=== PATIENT | male | born 1980 | race Caucasian/White ===

== ENCOUNTER 2022-05-02 18:33 | Inpatient (IN) | payer MEDICARE, MEDICAID ==
[~2022-05-02] VITALS: Ht 170.2 cm; Wt 104.3 kg
[2022-05-02 20:00] VITALS: BP 179/70
[2022-05-02] MEDS ORDERED: NON FORMULARY PATIENT HOME MED XX SCH (20:30)
[2022-05-02] MEDS ORDERED: BENZONATATE 100MG CAPSULE PO PRN (20:30)
[2022-05-02] MEDS ORDERED: ACETAMINOPHEN 325MG TABLET PO PRN (20:30)
[2022-05-02] MEDS ORDERED: CLONIDINE 0.1MG TABLET PO PRN (20:30)
[2022-05-02] MEDS ORDERED: SENNOSIDES/DOCUSATE SOD 8.6/50MG TABLET PO PRN (20:30)
[2022-05-02] MEDS ORDERED: THROAT LOZENGES-BENZOCAINE/MENTH/CETYLPYRD CL LOZENGES MM PRN (20:30)
[2022-05-02] MEDS ORDERED: SIMETHICONE 80MG TABLET CHEW PO PRN (20:30)
[2022-05-02] MEDS ORDERED: DOCUSATE SODIUM 100MG CAPSULE PO PRN (20:30)
[2022-05-02] MEDS ORDERED: GUAIFENESIN-DM 200MG-20MG/10ML UDC PO PRN (21:15)
[2022-05-02] MEDS ORDERED: MAGNESIUM/ALUMINUM HYDROXIDE/SIMETHICONE 30ML UDC PO PRN (21:15)
[2022-05-02] MEDS ORDERED: SODIUM CHLORIDE 45ML SPRAY NS PRN ×2 (21:22→21:23)
[2022-05-02] MEDS: ATORVASTATIN CALCIUM 40MG TABLET PO SCH (21:46)
[2022-05-02] MEDS: AMLODIPINE 5MG TABLET PO SCH (21:47)
[2022-05-02 22:30] VITALS: BP 135/64
[2022-05-02] MEDS: HYDRALAZINE HCL 10MG TABLET PO SCH (22:32)
[2022-05-03] MEDS: HYDRALAZINE HCL 10MG TABLET PO SCH ×3 (05:30→22:30)
[2022-05-03 06:48] LABS: BASOPHILS % 0.2 % (0.0-2.0); EOSINOPHILS % 2.6 % (0.0-5.0); HEMATOCRIT. 42.4 % (36.0-48.0); HEMOGLOBIN. 14.6 g/dL (12.0-16.0); LYMPHOCYTES % 25.8 % (20.0-50.0); MEAN CORPUSCULAR HEMOGLOBIN 33.6 pg (28.0-32.0); MEAN CORPUSCULAR VOLUME 97.6 fL (81.0-99.0); MEAN PLATELET VOLUME 7.9 fl (7.4-10.4); MONOCYTES % 7.5 % (2.0-8.0); NEUTROPHILS % 63.9 % (40.0-76.0); PLATELET 232 x1000/uL (130-400); RED BLOOD CELL COUNT 4.35 mill/uL (4.2-5.4); RED CELL DISTRIBUTION WIDTH 12.8 % (11.6-14.6)
[2022-05-03 06:53] LABS: CHLORIDE 107 mEq/L (98-107)
[2022-05-03 08:00] VITALS: BP 140/65
[2022-05-03] MEDS ORDERED: POLYVINYL ALCOHOL OPHTH DROPS 15ML BOTHEYE PRN (09:00)
[2022-05-03] MEDS ORDERED: ASPIRIN 325MG EC TABLET PO SCH (09:00)
[2022-05-03] MEDS: LOSARTAN POTASSIUM 50 MG TABLET PO SCH (09:18)
[2022-05-03] MEDS: OMEPRAZOLE 20MG CAPSULE EXTENDED RELEASE PO SCH (09:18)
[2022-05-03] MEDS: AMLODIPINE 5MG TABLET PO SCH ×2 (09:19→22:30)
[2022-05-03 20:00] VITALS: BP 141/82
[2022-05-03 21:00] LABS: ETHANOL BLOOD < 10 mg/dL; HDL CHOLESTEROL 24 mg/dL (40-59); LDL CHOLESTEROL 51 mg/dL (5-100)
[2022-05-03] MEDS: HYDROCORTISONE 1% CREAM 30GM TOP SCH (22:00)
[2022-05-03] MEDS: ATORVASTATIN CALCIUM 40MG TABLET PO SCH (22:31)
[2022-05-04] MEDS: HYDROCORTISONE 1% CREAM 30GM TOP SCH ×3 (06:00→22:00)
[2022-05-04 06:31] LABS: BASOPHILS % 0.3 % (0.0-2.0); EOSINOPHILS % 2.7 % (0.0-5.0); HEMATOCRIT. 41.5 % (42.0-52.0); HEMOGLOBIN. 14.4 g/dL (14.0-18.0); LYMPHOCYTES % 24.7 % (20.0-50.0); MEAN CORPUSCULAR HEMOGLOBIN 33.6 pg (28.0-32.0); MEAN CORPUSCULAR VOLUME 96.8 fL (80.0-94.0); MEAN PLATELET VOLUME 7.9 fl (7.4-10.4); MONOCYTES % 7.4 % (2.0-8.0); NEUTROPHILS % 64.9 % (40.0-76.0); PLATELET 218 x1000/uL (130-400); RED BLOOD CELL COUNT 4.29 mill/uL (4.7-6.1); RED CELL DISTRIBUTION WIDTH 12.7 % (11.6-14.6)
[2022-05-04 06:53] LABS: CHLORIDE 105 mEq/L (98-107)
[2022-05-04 07:20] LABS: FOLIC ACID (FOLATE) SERUM 11.2 ng/mL (>5.38)
[2022-05-04] MEDS: HYDRALAZINE HCL 10MG TABLET PO SCH ×3 (07:56→22:00)
[2022-05-04 08:00] VITALS: BP 138/75
[2022-05-04] MEDS ORDERED: ASPIRIN 81MG EC TABLET PO SCH (09:00)
[2022-05-04 09:13] LABS: PROSTRATE SPECIFIC AG TOTAL 0.3 ng/mL (0.0-4.0)
[2022-05-04] MEDS: OMEPRAZOLE 20MG CAPSULE EXTENDED RELEASE PO SCH (09:37)
[2022-05-04] MEDS: AMLODIPINE 5MG TABLET PO SCH ×2 (09:38→20:59)
[2022-05-04] MEDS: LOSARTAN POTASSIUM 50 MG TABLET PO SCH (09:38)
[2022-05-04] MEDS: CLOPIDOGREL 75MG TABLET PO SCH (09:38)
[2022-05-04 13:13] LABS: *AMPHETAMINES SCREEN URINE NEGATIVE (NEGATIVE); *BARBITURATES SCREEN URINE NEGATIVE (NEGATIVE); *BENZODIAZEPINES SCREEN URINE NEGATIVE (NEGATIVE); *COCAINE SCREEN URINE NEGATIVE (NEGATIVE); CANNABINOID URINE SCREEN NEGATIVE (NEGATIVE); METHADONE URINE SCREEN NEGATIVE (NEGATIVE); OPIATES URINE SCREEN NEGATIVE (NEGATIVE); PHENCYCLIDINE URINE SCREEN NEGATIVE (NEGATIVE)
[2022-05-04] MEDS: CYANOCOBALAMIN 1000MCG/ML VIAL SUBCUT SCH (13:15)
[2022-05-04] MEDS: LACTULOSE 20G/30ML UDC PO SCH ×2 (13:17→22:00)
[2022-05-04] MEDS: TRIAMCINOLONE ACETONIDE 0.5% CREAM 15GM TOP SCH ×2 (13:58→17:23)
[2022-05-04] MEDS: MUPIROCIN 2% OINT 15GM TOP SCH (17:23)
[2022-05-04 20:00] VITALS: BP 125/62
[2022-05-04] MEDS: ATORVASTATIN CALCIUM 40MG TABLET PO SCH (20:58)
[2022-05-05] MEDS: LACTULOSE 20G/30ML UDC PO SCH ×3 (06:00→22:21)
[2022-05-05] MEDS: HYDROCORTISONE 1% CREAM 30GM TOP SCH ×3 (06:00→22:21)
[2022-05-05] MEDS: HYDRALAZINE HCL 10MG TABLET PO SCH ×3 (06:01→22:22)
[2022-05-05 08:00] VITALS: BP 158/83
[2022-05-05] MEDS: CYANOCOBALAMIN 1000MCG/ML VIAL SUBCUT SCH (09:25)
[2022-05-05] MEDS: OMEPRAZOLE 20MG CAPSULE EXTENDED RELEASE PO SCH (09:26)
[2022-05-05] MEDS: LOSARTAN POTASSIUM 50 MG TABLET PO SCH (09:26)
[2022-05-05] MEDS: AMLODIPINE 5MG TABLET PO SCH ×2 (09:27→21:21)
[2022-05-05] MEDS: CLOPIDOGREL 75MG TABLET PO SCH (09:27)
[2022-05-05] MEDS: MUPIROCIN 2% OINT 15GM TOP SCH ×2 (09:36→16:25)
[2022-05-05] MEDS: TRIAMCINOLONE ACETONIDE 0.5% CREAM 15GM TOP SCH ×3 (09:36→16:25)
[2022-05-05 20:26] VITALS: BP 160/69
[2022-05-05] MEDS: ATORVASTATIN CALCIUM 40MG TABLET PO SCH (21:21)
[2022-05-06] MEDS: LACTULOSE 20G/30ML UDC PO SCH ×3 (06:41→22:00)
[2022-05-06] MEDS: HYDROCORTISONE 1% CREAM 30GM TOP SCH ×3 (06:42→22:03)
[2022-05-06] MEDS: HYDRALAZINE HCL 10MG TABLET PO SCH ×3 (06:45→22:02)
[2022-05-06] MEDS ORDERED: CYANOCOBALAMIN 1000MCG/ML VIAL IM SCH (07:38)
[2022-05-06 08:00] VITALS: BP 128/73
[2022-05-06] MEDS: TRIAMCINOLONE ACETONIDE 0.5% CREAM 15GM TOP SCH ×3 (09:00→17:00)
[2022-05-06] MEDS: MUPIROCIN 2% OINT 15GM TOP SCH (09:00)
[2022-05-06] MEDS: CYANOCOBALAMIN 1000MCG/ML VIAL IM SCH (09:20)
[2022-05-06] MEDS: FAMOTIDINE 20MG TABLET PO SCH (09:20)
[2022-05-06] MEDS: CLOPIDOGREL 75MG TABLET PO SCH (09:20)
[2022-05-06] MEDS: LOSARTAN POTASSIUM 50 MG TABLET PO SCH (09:21)
[2022-05-06] MEDS: AMLODIPINE 5MG TABLET PO SCH ×2 (09:21→22:02)
[2022-05-06 19:18] LABS: PROTHROMBIN TIME 10.7 sec (9.6-11.0)
[2022-05-06 19:47] LABS: HEPATITIS B SURFACE ANTIGEN NEGATIVE
[2022-05-06 20:21] VITALS: BP 143/51
[2022-05-06] MEDS: ATORVASTATIN CALCIUM 40MG TABLET PO SCH (22:03)
[2022-05-07] MEDS: HYDRALAZINE HCL 10MG TABLET PO SCH ×3 (05:47→21:41)
[2022-05-07] MEDS: LACTULOSE 20G/30ML UDC PO SCH ×3 (05:47→21:42)
[2022-05-07] MEDS: HYDROCORTISONE 1% CREAM 30GM TOP SCH ×3 (06:15→21:43)
[2022-05-07 06:18] LABS: CHLORIDE 106 mEq/L (98-107)
[2022-05-07 06:22] LABS: BASOPHILS % 0.7 % (0.0-2.0); EOSINOPHILS % 2.2 % (0.0-5.0); HEMATOCRIT. 41.2 % (42.0-52.0); MEAN CORPUSCULAR HEMOGLOBIN 33.1 pg (28.0-32.0); MEAN CORPUSCULAR VOLUME 97.7 fL (80.0-94.0); MEAN PLATELET VOLUME 8.8 fl (7.4-10.4); MONOCYTES % 7.1 % (2.0-8.0); PLATELET 186 x1000/uL (130-400); RED BLOOD CELL COUNT 4.22 mill/uL (4.7-6.1); RED CELL DISTRIBUTION WIDTH 12.8 % (11.6-14.6)
[2022-05-07 08:00] VITALS: BP 112/60
[2022-05-07] MEDS: FAMOTIDINE 20MG TABLET PO SCH ×2 (08:48→17:43)
[2022-05-07] MEDS: CLOPIDOGREL 75MG TABLET PO SCH (08:49)
[2022-05-07] MEDS: AMLODIPINE 5MG TABLET PO SCH ×2 (08:49→21:40)
[2022-05-07] MEDS: LOSARTAN POTASSIUM 50 MG TABLET PO SCH (08:49)
[2022-05-07] MEDS: MUPIROCIN 2% OINT 15GM TOP SCH ×2 (09:00→17:00)
[2022-05-07] MEDS: TRIAMCINOLONE ACETONIDE 0.5% CREAM 15GM TOP SCH ×3 (09:00→17:00)
[2022-05-07] MEDS: CYANOCOBALAMIN 1000MCG/ML VIAL IM SCH (09:00)
[2022-05-07 20:07] VITALS: BP 150/62
[2022-05-07] MEDS: ATORVASTATIN CALCIUM 40MG TABLET PO SCH (21:39)
[2022-05-07] MEDS: MELATONIN 3MG TABLET PO PRN (21:40)
[2022-05-08] MEDS: LACTULOSE 20G/30ML UDC PO SCH ×2 (06:19→13:14)
[2022-05-08] MEDS: HYDROCORTISONE 1% CREAM 30GM TOP SCH ×3 (06:20→21:13)
[2022-05-08] MEDS: HYDRALAZINE HCL 10MG TABLET PO SCH ×3 (06:23→21:12)
[2022-05-08 08:00] VITALS: BP 144/81
[2022-05-08] MEDS: CLOPIDOGREL 75MG TABLET PO SCH (08:45)
[2022-05-08] MEDS: LOSARTAN POTASSIUM 50 MG TABLET PO SCH (08:45)
[2022-05-08] MEDS: CYANOCOBALAMIN 1000MCG/ML VIAL IM SCH (08:45)
[2022-05-08] MEDS: AMLODIPINE 5MG TABLET PO SCH ×2 (08:45→21:13)
[2022-05-08] MEDS: MUPIROCIN 2% OINT 15GM TOP SCH (08:45)
[2022-05-08] MEDS: FAMOTIDINE 20MG TABLET PO SCH ×2 (08:45→16:48)
[2022-05-08] MEDS: TRIAMCINOLONE ACETONIDE 0.5% CREAM 15GM TOP SCH ×3 (08:46→16:03)
[2022-05-08 09:06] LABS: FOLICLE STIMULATING HORMONE 4.2 mIU/mL (1.5-12.4); LUTEINIZING HORMONE 4.8 mIU/mL (1.7-8.6); PROLACTIN 9.8 ng/mL (4.0-15.2)
[2022-05-08 20:00] VITALS: BP 145/73
[2022-05-08] MEDS: ATORVASTATIN CALCIUM 40MG TABLET PO SCH (21:12)
[2022-05-09] MEDS: HYDRALAZINE HCL 10MG TABLET PO SCH ×3 (05:37→22:08)
[2022-05-09] MEDS: HYDROCORTISONE 1% CREAM 30GM TOP SCH ×3 (05:38→22:13)
[2022-05-09 06:44] LABS: BASOPHILS % 0.4 % (0.0-2.0); EOSINOPHILS % 2.8 % (0.0-5.0); HEMATOCRIT. 38.6 % (42.0-52.0); HEMOGLOBIN. 13.5 g/dL (14.0-18.0); LYMPHOCYTES % 30.6 % (20.0-50.0); MEAN CORPUSCULAR HEMOGLOBIN 33.7 pg (28.0-32.0); MEAN CORPUSCULAR VOLUME 96.6 fL (80.0-94.0); MEAN PLATELET VOLUME 8.1 fl (7.4-10.4); MONOCYTES % 7.7 % (2.0-8.0); NEUTROPHILS % 58.5 % (40.0-76.0); PLATELET 191 x1000/uL (130-400); RED CELL DISTRIBUTION WIDTH 12.3 % (11.6-14.6)
[2022-05-09 06:51] LABS: CHLORIDE 108 mEq/L (98-107)
[2022-05-09 08:00] VITALS: BP 140/70
[2022-05-09] MEDS: CLOPIDOGREL 75MG TABLET PO SCH (08:44)
[2022-05-09] MEDS: CYANOCOBALAMIN 1000MCG/ML VIAL IM SCH (08:44)
[2022-05-09] MEDS: LOSARTAN POTASSIUM 50 MG TABLET PO SCH (08:45)
[2022-05-09] MEDS: AMLODIPINE 5MG TABLET PO SCH ×2 (08:45→22:09)
[2022-05-09] MEDS: FAMOTIDINE 20MG TABLET PO SCH ×2 (08:45→18:03)
[2022-05-09] MEDS: TRIAMCINOLONE ACETONIDE 0.5% CREAM 15GM TOP SCH ×2 (09:00→17:00)
[2022-05-09] MEDS ORDERED: LACTULOSE 20G/30ML UDC PO SCH (09:00)
[2022-05-09 20:00] VITALS: BP 145/73
[2022-05-09] MEDS: ATORVASTATIN CALCIUM 40MG TABLET PO SCH (22:08)
[2022-05-09] MEDS: MELATONIN 3MG TABLET PO PRN (22:09)
[2022-05-10] MEDS: HYDRALAZINE HCL 10MG TABLET PO SCH ×3 (05:37→22:11)
[2022-05-10] MEDS: HYDROCORTISONE 1% CREAM 30GM TOP SCH ×3 (05:39→22:00)
[2022-05-10 06:00] LABS: CHLORIDE 108 mEq/L (98-107)
[2022-05-10 06:48] LABS: BASOPHILS % 0.5 % (0.0-2.0); HEMATOCRIT. 39.8 % (42.0-52.0); HEMOGLOBIN. 13.6 g/dL (14.0-18.0); MEAN CORPUSCULAR HEMOGLOBIN 33.2 pg (28.0-32.0); MEAN CORPUSCULAR VOLUME 97.1 fL (80.0-94.0); MEAN PLATELET VOLUME 8.3 fl (7.4-10.4); MONOCYTES % 9.8 % (2.0-8.0); NEUTROPHILS % 57.7 % (40.0-76.0); PLATELET 217 x1000/uL (130-400); RED CELL DISTRIBUTION WIDTH 12.7 % (11.6-14.6)
[2022-05-10 08:00] VITALS: BP 135/81
[2022-05-10] MEDS: FAMOTIDINE 20MG TABLET PO SCH ×2 (10:17→16:21)
[2022-05-10] MEDS: LOSARTAN POTASSIUM 50 MG TABLET PO SCH (10:18)
[2022-05-10] MEDS: AMLODIPINE 5MG TABLET PO SCH ×2 (10:18→22:11)
[2022-05-10] MEDS: CLOPIDOGREL 75MG TABLET PO SCH (10:18)
[2022-05-10] MEDS: CYANOCOBALAMIN 1000MCG/ML VIAL IM SCH (10:19)
[2022-05-10] MEDS: LACTULOSE 20G/30ML UDC PO SCH ×2 (10:29→16:21)
[2022-05-10] MEDS: TRIAMCINOLONE ACETONIDE 0.5% CREAM 15GM TOP SCH ×2 (10:38→16:23)
[2022-05-10] MEDS: ATORVASTATIN CALCIUM 40MG TABLET PO SCH (22:11)
[2022-05-11] MEDS: HYDRALAZINE HCL 10MG TABLET PO SCH ×3 (06:00→22:00)
[2022-05-11] MEDS: HYDROCORTISONE 1% CREAM 30GM TOP SCH ×3 (06:00→22:00)
[2022-05-11 08:00] VITALS: BP 125/57
[2022-05-11 08:05] LABS: CHLORIDE 108 mEq/L (98-107)
[2022-05-11 08:06] LABS: BASOPHILS % 0.4 % (0.0-2.0); EOSINOPHILS % 2.5 % (0.0-5.0); HEMATOCRIT. 38.6 % (42.0-52.0); HEMOGLOBIN. 13.4 g/dL (14.0-18.0); LYMPHOCYTES % 19.8 % (20.0-50.0); MEAN CORPUSCULAR HEMOGLOBIN 33.3 pg (28.0-32.0); MEAN CORPUSCULAR VOLUME 95.6 fL (80.0-94.0); MEAN PLATELET VOLUME 8.2 fl (7.4-10.4); MONOCYTES % 8.1 % (2.0-8.0); NEUTROPHILS % 69.2 % (40.0-76.0); PLATELET 215 x1000/uL (130-400); RED BLOOD CELL COUNT 4.03 mill/uL (4.7-6.1); RED CELL DISTRIBUTION WIDTH 12.7 % (11.6-14.6)
[2022-05-11] MEDS: TRIAMCINOLONE ACETONIDE 0.5% CREAM 15GM TOP SCH ×2 (09:00→17:00)
[2022-05-11] MEDS: LACTULOSE 20G/30ML UDC PO SCH ×2 (09:09→18:23)
[2022-05-11] MEDS: LOSARTAN POTASSIUM 50 MG TABLET PO SCH (09:11)
[2022-05-11] MEDS: CLOPIDOGREL 75MG TABLET PO SCH (09:11)
[2022-05-11] MEDS: FAMOTIDINE 20MG TABLET PO SCH ×2 (09:11→18:22)
[2022-05-11] MEDS: AMLODIPINE 5MG TABLET PO SCH ×2 (09:12→21:08)
[2022-05-11] MEDS: CLOTRIMAZOLE/BETAMETHASONE 1/0.05% CREAM 15GM TOP SCH (21:00)
[2022-05-11] MEDS: ATORVASTATIN CALCIUM 40MG TABLET PO SCH (21:08)
[2022-05-12] MEDS: HYDRALAZINE HCL 10MG TABLET PO SCH ×3 (06:00→21:10)
[2022-05-12] MEDS: HYDROCORTISONE 1% CREAM 30GM TOP SCH ×3 (06:00→22:00)
[2022-05-12 08:00] VITALS: BP 128/65
[2022-05-12] MEDS: AMLODIPINE 5MG TABLET PO SCH ×2 (08:52→21:07)
[2022-05-12] MEDS: FAMOTIDINE 20MG TABLET PO SCH ×2 (08:52→17:09)
[2022-05-12] MEDS: LOSARTAN POTASSIUM 50 MG TABLET PO SCH (08:52)
[2022-05-12] MEDS: LACTULOSE 20G/30ML UDC PO SCH ×2 (08:52→17:09)
[2022-05-12] MEDS: CLOPIDOGREL 75MG TABLET PO SCH (08:52)
[2022-05-12] MEDS: TRIAMCINOLONE ACETONIDE 0.5% CREAM 15GM TOP SCH ×2 (08:53→17:00)
[2022-05-12] MEDS: CLOTRIMAZOLE/BETAMETHASONE 1/0.05% CREAM 15GM TOP SCH ×2 (08:53→21:00)
[2022-05-12 19:06] LABS: 25-HYDROXY VITAMIN D3 18 ng/mL (.)
[2022-05-12] MEDS: ATORVASTATIN CALCIUM 40MG TABLET PO SCH (21:06)
[2022-05-13 04:06] LABS: TESTOSTERONE FREE 4.7 pg/mL (6.8-21.5)
[2022-05-13] MEDS: HYDROCORTISONE 1% CREAM 30GM TOP SCH ×3 (06:00→22:24)
[2022-05-13] MEDS: HYDRALAZINE HCL 10MG TABLET PO SCH ×3 (06:00→22:25)
[2022-05-13 07:05] LABS: T4 FREE 1.34 ng/dL (0.76-1.46)
[2022-05-13 08:00] VITALS: BP 105/72
[2022-05-13] MEDS: AMLODIPINE 5MG TABLET PO SCH ×2 (08:23→21:14)
[2022-05-13] MEDS: LOSARTAN POTASSIUM 50 MG TABLET PO SCH (08:23)
[2022-05-13] MEDS: LACTULOSE 20G/30ML UDC PO SCH ×2 (08:48→16:41)
[2022-05-13] MEDS: CLOPIDOGREL 75MG TABLET PO SCH (08:48)
[2022-05-13] MEDS: FAMOTIDINE 20MG TABLET PO SCH ×2 (08:48→16:41)
[2022-05-13] MEDS: CLOTRIMAZOLE/BETAMETHASONE 1/0.05% CREAM 15GM TOP SCH ×2 (08:52→21:15)
[2022-05-13 20:06] VITALS: BP 136/60
[2022-05-13] MEDS: ATORVASTATIN CALCIUM 40MG TABLET PO SCH (21:14)
[2022-05-14] MEDS: HYDRALAZINE HCL 10MG TABLET PO SCH ×3 (05:27→21:29)
[2022-05-14] MEDS: HYDROCORTISONE 1% CREAM 30GM TOP SCH ×3 (05:27→21:29)
[2022-05-14 08:00] VITALS: BP 121/49
[2022-05-14] MEDS: CLOPIDOGREL 75MG TABLET PO SCH (09:38)
[2022-05-14] MEDS: AMLODIPINE 5MG TABLET PO SCH ×2 (09:38→21:28)
[2022-05-14] MEDS: FAMOTIDINE 20MG TABLET PO SCH ×2 (09:38→16:37)
[2022-05-14] MEDS: LACTULOSE 20G/30ML UDC PO SCH ×2 (09:39→16:37)
[2022-05-14] MEDS: CLOTRIMAZOLE/BETAMETHASONE 1/0.05% CREAM 15GM TOP SCH ×2 (09:42→21:29)
[2022-05-14] MEDS: LOSARTAN POTASSIUM 50 MG TABLET PO SCH (09:42)
[2022-05-14] MEDS: ERGOCALCIFEROL 50000UNITS CAPSULE PO SCH (14:57)
[2022-05-14 20:27] VITALS: BP 140/56
[2022-05-14] MEDS: ATORVASTATIN CALCIUM 40MG TABLET PO SCH (21:28)
[2022-05-15] MEDS: HYDRALAZINE HCL 10MG TABLET PO SCH ×3 (05:12→21:57)
[2022-05-15] MEDS: HYDROCORTISONE 1% CREAM 30GM TOP SCH ×3 (05:12→22:00)
[2022-05-15 05:22] LABS: BASOPHILS % 0.3 % (0.0-2.0); EOSINOPHILS % 2.5 % (0.0-5.0); HEMATOCRIT. 37.4 % (42.0-52.0); LYMPHOCYTES % 21.2 % (20.0-50.0); MEAN CORPUSCULAR HEMOGLOBIN 33.4 pg (28.0-32.0); MEAN CORPUSCULAR VOLUME 96.5 fL (80.0-94.0); MONOCYTES % 9.8 % (2.0-8.0); NEUTROPHILS % 66.2 % (40.0-76.0); PLATELET 212 x1000/uL (130-400); RED BLOOD CELL COUNT 3.88 mill/uL (4.7-6.1); RED CELL DISTRIBUTION WIDTH 12.6 % (11.6-14.6)
[2022-05-15 05:26] LABS: CHLORIDE 108 mEq/L (98-107)
[2022-05-15 08:00] VITALS: BP 130/68
[2022-05-15] MEDS: CLOTRIMAZOLE/BETAMETHASONE 1/0.05% CREAM 15GM TOP SCH ×2 (09:28→21:00)
[2022-05-15] MEDS: LOSARTAN POTASSIUM 50 MG TABLET PO SCH (09:29)
[2022-05-15] MEDS: LACTULOSE 20G/30ML UDC PO SCH ×3 (09:29→17:21)
[2022-05-15] MEDS: FAMOTIDINE 20MG TABLET PO SCH ×2 (09:29→17:22)
[2022-05-15] MEDS: AMLODIPINE 5MG TABLET PO SCH ×2 (09:29→21:58)
[2022-05-15] MEDS: CLOPIDOGREL 75MG TABLET PO SCH (09:29)
[2022-05-15 20:00] VITALS: BP 131/60
[2022-05-15] MEDS: ATORVASTATIN CALCIUM 40MG TABLET PO SCH (21:57)
[2022-05-16] MEDS: HYDROCORTISONE 1% CREAM 30GM TOP SCH (06:00)
[2022-05-16] MEDS: HYDRALAZINE HCL 10MG TABLET PO SCH ×3 (06:00→22:00)
[2022-05-16 06:23] LABS: CHLORIDE 107 mEq/L (98-107)
[2022-05-16 06:34] LABS: BASOPHILS % 0.4 % (0.0-2.0); EOSINOPHILS % 2.5 % (0.0-5.0); HEMATOCRIT. 37.4 % (42.0-52.0); HEMOGLOBIN. 13.1 g/dL (14.0-18.0); MEAN CORPUSCULAR HEMOGLOBIN 33.6 pg (28.0-32.0); MEAN CORPUSCULAR VOLUME 96.4 fL (80.0-94.0); MONOCYTES % 8.1 % (2.0-8.0); PLATELET 212 x1000/uL (130-400); RED BLOOD CELL COUNT 3.88 mill/uL (4.7-6.1); RED CELL DISTRIBUTION WIDTH 12.7 % (11.6-14.6)
[2022-05-16 08:00] VITALS: BP 116/59
[2022-05-16] MEDS: LACTULOSE 20G/30ML UDC PO SCH ×3 (08:09→18:02)
[2022-05-16] MEDS: FAMOTIDINE 20MG TABLET PO SCH ×2 (08:10→18:02)
[2022-05-16] MEDS: LOSARTAN POTASSIUM 50 MG TABLET PO SCH (08:10)
[2022-05-16] MEDS: CLOPIDOGREL 75MG TABLET PO SCH (08:10)
[2022-05-16] MEDS: AMLODIPINE 5MG TABLET PO SCH ×2 (08:10→20:54)
[2022-05-16] MEDS: CLOTRIMAZOLE/BETAMETHASONE 1/0.05% CREAM 15GM TOP SCH ×2 (08:11→21:00)
[2022-05-16] MEDS ORDERED: LIDOCAINE HCL 1% 20ML VIAL (Pyxis) INJ INFIL ONE (09:00)
[2022-05-16] MEDS ORDERED: TRIAMCINOLONE ACETONIDE 40MG/ML 1ML VIAL IM ONE (09:00)
[2022-05-16] MEDS ORDERED: ETHYL CHLORIDE CAN TOP ONE (09:00)
[2022-05-16] MEDS ORDERED: HYDROCORTISONE 1% CREAM 30GM TOP PRN (09:45)
[2022-05-16] MEDS ORDERED: DIPHENHYDRAMINE 25MG CAPSULE PO PRN (12:00)
[2022-05-16 20:00] VITALS: BP_SYST 108; BP_SYST 109; BP_DIAS 53; BP_DIAS 59
[2022-05-16] MEDS: ATORVASTATIN CALCIUM 40MG TABLET PO SCH (20:53)
[2022-05-17 06:00] LABS: CHLORIDE 110 mEq/L (98-107)
[2022-05-17 06:44] LABS: BASOPHILS % 0.4 % (0.0-2.0); EOSINOPHILS % 2.4 % (0.0-5.0); HEMATOCRIT. 38.6 % (42.0-52.0); HEMOGLOBIN. 13.1 g/dL (14.0-18.0); LYMPHOCYTES % 22.8 % (20.0-50.0); MEAN CORPUSCULAR HEMOGLOBIN 33.1 pg (28.0-32.0); MEAN CORPUSCULAR VOLUME 97.5 fL (80.0-94.0); MEAN PLATELET VOLUME 8.1 fl (7.4-10.4); MONOCYTES % 8.2 % (2.0-8.0); NEUTROPHILS % 66.2 % (40.0-76.0); PLATELET 216 x1000/uL (130-400); RED BLOOD CELL COUNT 3.95 mill/uL (4.7-6.1); RED CELL DISTRIBUTION WIDTH 12.5 % (11.6-14.6)
[2022-05-17] MEDS: HYDRALAZINE HCL 10MG TABLET PO SCH ×3 (06:47→21:51)
[2022-05-17 08:00] VITALS: BP 106/55
[2022-05-17] MEDS: LACTULOSE 20G/30ML UDC PO SCH ×3 (08:25→16:17)
[2022-05-17] MEDS: FAMOTIDINE 20MG TABLET PO SCH ×2 (08:26→16:17)
[2022-05-17] MEDS: CLOPIDOGREL 75MG TABLET PO SCH (08:26)
[2022-05-17] MEDS: AMLODIPINE 5MG TABLET PO SCH ×2 (08:27→21:51)
[2022-05-17] MEDS: LOSARTAN POTASSIUM 50 MG TABLET PO SCH (08:27)
[2022-05-17] MEDS: CLOTRIMAZOLE/BETAMETHASONE 1/0.05% CREAM 15GM TOP SCH ×2 (08:27→21:52)
[2022-05-17] MEDS ORDERED: CYANOCOBALAMIN 1000MCG/ML VIAL IM SCH (09:00)
[2022-05-17 20:05] VITALS: BP 140/76
[2022-05-17] MEDS: ATORVASTATIN CALCIUM 40MG TABLET PO SCH (21:51)
[2022-05-17] MEDS: MELATONIN 3MG TABLET PO PRN (21:51)
[2022-05-18] MEDS: HYDRALAZINE HCL 10MG TABLET PO SCH ×3 (05:38→22:48)
[2022-05-18 05:47] LABS: CHLORIDE 108 mEq/L (98-107)
[2022-05-18 05:57] LABS: BASOPHILS % 0.3 % (0.0-2.0); EOSINOPHILS % 1.5 % (0.0-5.0); HEMATOCRIT. 36.2 % (42.0-52.0); HEMOGLOBIN. 12.5 g/dL (14.0-18.0); LYMPHOCYTES % 16.1 % (20.0-50.0); MEAN CORPUSCULAR HEMOGLOBIN 33.1 pg (28.0-32.0); MEAN CORPUSCULAR VOLUME 95.8 fL (80.0-94.0); MEAN PLATELET VOLUME 7.9 fl (7.4-10.4); MONOCYTES % 7.9 % (2.0-8.0); NEUTROPHILS % 74.2 % (40.0-76.0); PLATELET 218 x1000/uL (130-400); RED BLOOD CELL COUNT 3.77 mill/uL (4.7-6.1); RED CELL DISTRIBUTION WIDTH 12.5 % (11.6-14.6)
[2022-05-18 08:00] VITALS: BP 105/50
[2022-05-18] MEDS: AMLODIPINE 5MG TABLET PO SCH ×2 (08:11→22:49)
[2022-05-18] MEDS: LOSARTAN POTASSIUM 50 MG TABLET PO SCH (08:11)
[2022-05-18] MEDS: FAMOTIDINE 20MG TABLET PO SCH ×2 (08:12→16:21)
[2022-05-18] MEDS: CLOPIDOGREL 75MG TABLET PO SCH (08:12)
[2022-05-18] MEDS: LACTULOSE 20G/30ML UDC PO SCH ×3 (08:12→16:21)
[2022-05-18] MEDS: CLOTRIMAZOLE/BETAMETHASONE 1/0.05% CREAM 15GM TOP SCH ×2 (08:13→21:00)
[2022-05-18 20:00] VITALS: BP 131/69
[2022-05-18] MEDS: ATORVASTATIN CALCIUM 40MG TABLET PO SCH (22:48)
[2022-05-19] MEDS: HYDRALAZINE HCL 10MG TABLET PO SCH ×3 (06:22→22:00)
[2022-05-19 08:00] VITALS: BP 133/67
[2022-05-19] MEDS: CLOPIDOGREL 75MG TABLET PO SCH (08:49)
[2022-05-19] MEDS: LACTULOSE 20G/30ML UDC PO SCH ×3 (08:49→16:38)
[2022-05-19] MEDS: FAMOTIDINE 20MG TABLET PO SCH ×2 (08:49→16:38)
[2022-05-19] MEDS: LOSARTAN POTASSIUM 50 MG TABLET PO SCH (08:49)
[2022-05-19] MEDS: AMLODIPINE 5MG TABLET PO SCH ×2 (08:49→20:41)
[2022-05-19] MEDS: CLOTRIMAZOLE/BETAMETHASONE 1/0.05% CREAM 15GM TOP SCH ×2 (08:50→20:44)
[2022-05-19 20:00] VITALS: BP 109/67
[2022-05-19] MEDS: ATORVASTATIN CALCIUM 40MG TABLET PO SCH (20:41)
[2022-05-20] MEDS: HYDRALAZINE HCL 10MG TABLET PO SCH ×3 (05:18→22:00)
[2022-05-20 05:59] LABS: CHLORIDE 108 mEq/L (98-107)
[2022-05-20 06:22] LABS: BASOPHILS % 0.3 % (0.0-2.0); EOSINOPHILS % 2.3 % (0.0-5.0); HEMATOCRIT. 34.7 % (42.0-52.0); HEMOGLOBIN. 11.8 g/dL (14.0-18.0); MEAN CORPUSCULAR VOLUME 97.1 fL (80.0-94.0); MEAN PLATELET VOLUME 8.2 fl (7.4-10.4); MONOCYTES % 7.7 % (2.0-8.0); NEUTROPHILS % 70.7 % (40.0-76.0); PLATELET 201 x1000/uL (130-400); RED BLOOD CELL COUNT 3.58 mill/uL (4.7-6.1); RED CELL DISTRIBUTION WIDTH 13.1 % (11.6-14.6)
[2022-05-20 07:48] VITALS: BP 133/69
[2022-05-20] MEDS: CLOPIDOGREL 75MG TABLET PO SCH (09:34)
[2022-05-20] MEDS: LOSARTAN POTASSIUM 50 MG TABLET PO SCH (09:34)
[2022-05-20] MEDS: LACTULOSE 20G/30ML UDC PO SCH ×3 (09:34→18:07)
[2022-05-20] MEDS: FAMOTIDINE 20MG TABLET PO SCH ×2 (09:34→18:07)
[2022-05-20] MEDS: AMLODIPINE 5MG TABLET PO SCH ×2 (09:35→20:50)
[2022-05-20] MEDS: CLOTRIMAZOLE/BETAMETHASONE 1/0.05% CREAM 15GM TOP SCH ×2 (09:42→21:00)
[2022-05-20] MEDS: METHIMAZOLE 5MG TABLET PO SCH (14:56)
[2022-05-20] MEDS ORDERED: SODI45SP7 NS (18:35)
[2022-05-20] MEDS ORDERED: B25 PO (18:35)
[2022-05-20] MEDS ORDERED: CLOP75TA15 PO (18:35)
[2022-05-20] MEDS ORDERED: AMLO5TAB88 PO (18:35)
[2022-05-20] MEDS ORDERED: ATOR-2 MT (18:35)
[2022-05-20] MEDS ORDERED: HYDR-4133 PO (18:35)
[2022-05-20] MEDS ORDERED: MELA3TAB40 PO (18:35)
[2022-05-20] MEDS ORDERED: METH-372 MT (18:35)
[2022-05-20] MEDS ORDERED: LOSA50TA3 PO (18:35)
[2022-05-20] MEDS ORDERED: SIME80TA16 PO (18:35)
[2022-05-20 19:41] VITALS: BP 114/75
[2022-05-20] MEDS: ATORVASTATIN CALCIUM 40MG TABLET PO SCH (20:49)
[2022-05-21] MEDS: HYDRALAZINE HCL 10MG TABLET PO SCH (05:12)
[2022-05-21 08:00] VITALS: BP 137/80
[2022-05-21] MEDS: ERGOCALCIFEROL 50000UNITS CAPSULE PO SCH (09:07)
[2022-05-21] MEDS: METHIMAZOLE 5MG TABLET PO SCH (09:07)
[2022-05-21] MEDS: FAMOTIDINE 20MG TABLET PO SCH (09:07)
[2022-05-21] MEDS: LOSARTAN POTASSIUM 50 MG TABLET PO SCH (09:08)
[2022-05-21] MEDS: LACTULOSE 20G/30ML UDC PO SCH (09:08)
[2022-05-21] MEDS: CLOPIDOGREL 75MG TABLET PO SCH (09:09)
[2022-05-21] MEDS: AMLODIPINE 5MG TABLET PO SCH (09:12)
[2022-05-21] MEDS: CLOTRIMAZOLE/BETAMETHASONE 1/0.05% CREAM 15GM TOP SCH (09:16)
[2022-05-21 10:56] VITALS: BP 137/80
== END 2022-05-21 13:45 | DRG 65 ==
LOC: EDSEX 18:33
PROVIDERS: ADMIT Physical Medicine & Rehabilitation Spinal Cord Injury Medicine; ATTEND Family Medicine Adult Medicine
DX: I63.81 Other cerebral infarction due to occlusion or stenosis of small artery (principal); G93.40 Encephalopathy, unspecified; I69.354 Hemiplegia and hemiparesis following cerebral infarction affecting left non-dominant side; B35.3 Tinea pedis; D75.89 Other specified diseases of blood and blood-forming organs; E05.90 Thyrotoxicosis, unspecified without thyrotoxic crisis or storm; E53.8 Deficiency of other specified B group vitamins; E66.9 Obesity, unspecified; E78.00 Pure hypercholesterolemia, unspecified; F15.10 Other stimulant abuse, uncomplicated; F17.210 Nicotine dependence, cigarettes, uncomplicated; F31.9 Bipolar disorder, unspecified; I10 Essential (primary) hypertension; K76.0 Fatty (change of) liver, not elsewhere classified; R29.6 Repeated falls; L60.3 Nail dystrophy; D53.9 Nutritional anemia, unspecified; S80.212A Abrasion, left knee, initial encounter; Z20.822 Contact with and (suspected) exposure to COVID-19; L57.0 Actinic keratosis; Z91.81 History of falling; Z79.02 Long term (current) use of antithrombotics/antiplatelets; Z68.30 Body mass index [BMI] 30.0-30.9, adult
CPT/HCPCS: 36415; 70544; 70553; 71045; 76700; 80048; 80053; 80061; 80305; 80320; 82024; 82140; 82306; 82533; 82607; 82746; 83001; 83002; 83036; 83520; 84134; 84146; 84153; 84402; 84403; 84439; 84443; 84481; 85025; 86705; 86709; 86803; 87340; 87426; 92523; 92610; 93970; 97110; 97112; 97116; 97162; 97166; 97530; 97535; 97542; A4565; A6261; J3420; Q0163; G0103; G0480